=== PATIENT | female | born 1955 | race Caucasian/White ===

== ENCOUNTER → 2022-05-04 | Outpatient (CLI) | payer MEDICARE, OTHER ==
[~2022-05-04] VITALS: Ht 162 cm; Wt 68.0 kg
[~2022-05-04] MED LIST: REGADENOSON 0.4 MG/5 ML SYR (LEXISCAN) IV ONE
[2022-05-04] MEDS: CATHETER FLUSH 10 ML SYR IVP PRN ×2 (06:57→08:06)
[2022-05-04 08:03] VITALS: BP 139/77
--- NOTE | 2022-05-04 11:41 | Cardiology Stress Test Report ---
Stress Test Report Date of Procedure/Referring: Date of Procedure: May 04, 2022 PCP Dylon Benjamin MD Admitting Physician Admitting Physician: Attending Physician: Joseph Vasquez DO Indications: CAD Baseline Vital Signs Vital Signs Date Time Temp Pulse Resp B/P (MAP) Pulse Ox O2 Delivery O2 Flow Rate FiO2 05/04/22 08:03 56 20 139/77 (97) 98 Room Air Summary: Patient receive a resting and stress dose of Myoview, images were acquired and reviewed in the short axis view, horizontal long axis view and vertical long axis view. TID: 1.01 SSS: 3 SDS: 2 EF: 62 1. No ischemia or infarction on SPECT images 2. Normal left ventricular size, ejection fraction 62% Copy Copies To 1: JOSEPH VASQUEZ BASHAR J MD May 04, 2022 11:41
== END ==
LOC: CARD 06:34
PROVIDERS: ATTEND Internal Medicine
DX: I25.10 Atherosclerotic heart disease of native coronary artery without angina pectoris (principal)
CPT/HCPCS: 78452; 93017; A9502